=== PATIENT | male | born 1975 | race Caucasian/White ===

== ENCOUNTER 2021-04-05 11:50 | Emergency (ER) | payer OTHER ==
[~2021-04-05] VITALS: Ht 160 cm; Wt 90.7 kg
[2021-04-05] MEDS ORDERED: CARVEDILOL25 MG PO (12:36)
[2021-04-05] MEDS ORDERED: ASA81BEC PO (12:36)
[2021-04-05] MEDS ORDERED: PROTONIX40 M2 PO (12:36)
[2021-04-05] MEDS ORDERED: LIPITOR 20 MG T20 M1 PO (12:37)
[2021-04-05] MEDS ORDERED: VITAMIN B-1100 M2 PO (12:37)
[2021-04-05] MEDS ORDERED: SPIRONOLACTONE25 MG PO (12:37)
[2021-04-05] MEDS ORDERED: ENTRESTO 97 MG1 EACH PO (12:37)
[2021-04-05 16:21] LABS: ABSOLUTE BASOPHILS 0.1 thou/uL (0.0-0.2); ABSOLUTE EOSINOPHILS 0.1 thou/uL (0.0-0.7); ABSOLUTE LYMPHOCYTES 0.9 thou/uL (0.8-5.3); ABSOLUTE MONOCYTES 0.7 thou/uL (0.0-1.2); ABSOLUTE NEUTROPHILS 6.4 thou/uL (1.6-8.1); BASOPHILS 0.7 %; EOSINOPHILS 0.8 %; HEMATOCRIT 40.9 % (42.0-52.0); HEMOGLOBIN 12.9 gm/dL (14.0-18.0); LYMPHOCYTES 11.4 %; MCH 26.6 pg (26.0-34.0); MCHC 31.6 g/dL (28.0-37.0); MCV 84.4 fL (80.0-100.0); MONOCYTES 8.7 %; MPV 6.3 fl. (7.2-11.1); NUCLEATED RBCS 0 /100WBC; PLATELET COUNT* 271 thou/uL (150-400); POLYS 78.4 %; RBC 4.85 mil/uL (4.50-6.00); RDW-CV 17.9 % (10.5-14.5); WBC 8.2 thou/uL (4.0-11.0)
[2021-04-05 16:33] LABS: APTT 27.6 Seconds (25.0-31.3); INR 1.1; PROTIME 10.9 Seconds (9.20-11.50)
[2021-04-05 16:57] VITALS: BP 156/90
== END 2021-04-05 16:58 | disposition home or self-care (01) ==
LOC: M.ERS 11:50
PROVIDERS: Nurse Practitioner Family
DX: S00.83XA Contusion of other part of head, initial encounter (principal); Z20.822 Contact with and (suspected) exposure to COVID-19; I11.0 Hypertensive heart disease with heart failure; I50.9 Heart failure, unspecified; E78.5 Hyperlipidemia, unspecified; K21.9 Gastro-esophageal reflux disease without esophagitis; Z79.82 Long term (current) use of aspirin; Z79.899 Other long term (current) drug therapy; X58.XXXA Exposure to other specified factors, initial encounter; Y93.89 Activity, other specified; Y92.89 Other specified places as the place of occurrence of the external cause; Y99.9 Unspecified external cause status